=== PATIENT | female | born 1950 | race Caucasian/White ===

== ENCOUNTER 2019-03-13 15:10 | Emergency (ER) | payer MEDICARE, OTHER ==
[2019-03-13] MEDS ORDERED: Lidocaine 1% 20 ML MDV ONE (15:52)
[2019-03-13] MEDS ORDERED: cefTRIAXone\\ROCEPHIN 1 GM VIAL ONE (15:52)
== END 2019-03-13 16:25 | disposition home or self-care (01) ==
LOC: MADERS 15:10
DX: J44.1 Chronic obstructive pulmonary disease with (acute) exacerbation (principal); J01.90 Acute sinusitis, unspecified
CPT/HCPCS: 96372; 99283; J0696; J1040; J2001; J7620